=== PATIENT | female | born 1965 | race Caucasian/White ===

== ENCOUNTER → 2017-04-29 | Outpatient (CLI) | payer OTHER ==
--- NOTE | 2017-04-30 08:23 | RAD ---
Right wrist, 3 views, 04/29/2017: History: Wrist pain, old injury There is an old nonunited fracture of the ulnar styloid. No acute fracture or dislocation is identified. There is minimal degenerative change at the first CMC joint. IMPRESSION: No acute bony abnormality is detected.
--- NOTE | 2017-04-30 08:25 | RAD ---
Indication back pain. AP and lateral views of the lumbar spine were obtained as well as a coned view targeted to the lumbosacral junction. A transitional segment is seen. The lower most lumbar vertebral body segment will be referred to as L6. There is slight disc space narrowing at L4-5 with mild anterolisthesis of L4 relative to L5. Vertebral height is well maintained. Some facet degenerative changes are noted in the lower lumbar spine. Acute bony finding is not seen. IMPRESSION: Mild spondylitic changes. No acute finding seen
== END | disposition home or self-care (01) ==
LOC: RAD 16:30
PROVIDERS: ATTEND Nurse Practitioner Family
DX: M47.896 Other spondylosis, lumbar region (principal); W19.XXXD Unspecified fall, subsequent encounter
CPT/HCPCS: 72100; 73110

== ENCOUNTER 2021-04-14 06:49 | Emergency (ER) | payer BC, OTHER ==
[~2021-04-14] VITALS: Ht 165.1 cm; Wt 66.3 kg
--- NOTE | 2021-04-14 07:11 | EKG ---
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
--- NOTE | 2021-04-14 07:16 | PHYS DOC ---
General Adult EDM: Chief Complaint: CHEST PAIN HPI: HPI: 56-year-old female presents with chest pain. She has been having chest pain since last night. She describes it as a tension feeling. It is mild in intensity. She has also been checking her blood pressure the last couple days and its been elevated as high as 180s over 90s. The patient has never had hypertension. She is not on any medications for hypertension. She went to bed last night thinking her pressure and the chest pain might get better. When she woke up this morning she still had discomfort in her central chest and between her shoulder blades. Her blood pressure was still elevated so she decided she should come to the emergency room. Patient has had a lot of emotional stress in her life the last few months. She has lost a couple of family members and some other socially stressful events. She denies shortness of breath, diaphoresis, fever or chills. Review of Systems: Review of Systems: Constitutional: Denies fever or chills Eyes: Denies change in visual acuity HENT: Denies nasal congestion or sore throat Respiratory: Denies cough or shortness of breath Cardiovascular: Chest pain GI: Denies abdominal pain, nausea, vomiting, bloody stools or diarrhea : Denies dysuria Musculoskeletal: Denies back pain or joint pain Integument: Denies rash Neurologic: Denies headache, focal weakness or sensory changes Endocrine: Denies polyuria or polydipsia Lymphatic: Denies swollen glands Psychiatric: Stress, anxiety Allergies: Allergies: Allergies Coded Allergies Type Severity Reaction Last Updated Verified No Known Drug Allergies 04/14/21 No Physical Exam: PE: Constitutional: Well developed, well nourished, no acute distress, non-toxic appearance. [] HENT: Normocephalic, atraumatic, bilateral external ears normal, oropharynx moist, no oral exudates, nose normal. [] Eyes: PERRLA, EOMI, conjunctiva normal, no discharge. [] Neck: Normal range of motion, no tenderness, supple, no stridor. [] Cardiovascular: Heart rate 74, regular rhythm, no murmur [] Lungs & Thorax: Bilateral breath sounds clear to auscultation [] Abdomen: Bowel sounds normal, soft, no tenderness, no masses, no pulsatile masses. [] Skin: Warm, dry, no erythema, no rash. [] Back: No tenderness, no CVA tenderness. [] Extremities: No tenderness, no cyanosis, no clubbing, ROM intact, no edema. [] Neurologic: Alert and oriented X 3, normal motor function, normal sensory function, no focal deficits noted. [] Psychologic: Affect normal, judgement normal, mood anxious. [] EKG: EKG: Sinus rhythm, rate 74, normal axis, no ST elevation or depression. [] Radiology/Procedures: Radiology/Procedures: [] Heart Score: C/O Chest Pain: Yes HEART Score for Chest Pain: HEART Score for Chest Pain Response (Comments) Value History Slighlty/Non-Suspicious 0 ECG Normal 0 Age >45 - < 65 1 Risk Factors 1 or 2 Risk Factors 1 Troponin < Normal Limit 0 Total 2 Risk Factors: Risk Factors: DM, Current or recent (<one month) smoker, HTN, HLP, family history of CAD, obesity. Risk Scores: Score 0 - 3: 2.5% MACE over next 6 weeks - Discharge Home Score 4 - 6: 20.3% MACE over next 6 weeks - Admit for Clinical Observation Score 7 - 10: 72.7% MACE over next 6 weeks - Early Invasive Strategies Course & Med Decision Making: Course & Med Decision Making Pertinent Labs and Imaging studies reviewed. (See chart for details) The patient's EKG is unremarkable. Her labs are unremarkable. Her troponin is negative. Her chest x-ray is negative for acute findings. I give the patient 1 mg of Ativan IV. Her pressure has improved to the 140s or 150s over 80. I discussed the patient's blood pressure with her. She may need to be on blood pressure medicine at this time. It could be heavily influenced by the stress in her life. We talked about sodium consumption. The patient will follow up with her primary care physician to further discuss this. She is stable for discharge at this time. [] Dragon Disclaimer: Dragon Disclaimer: This electronic medical record was generated, in whole or in part, using a voice recognition dictation system. Departure Departure: Impression: Primary Impression: Chest pain Qualified Codes: R07.9 - Chest pain, unspecified Additional Impression: Hypertension Qualified Codes: I10 - Essential (primary) hypertension Disposition: HOME / SELF CARE / HOMELESS Condition: STABLE Referrals: ANTHONY LOGAN MD (PCP) Patient Instructions: Chest Pain (Nonspecific), [id number], Hypertension, E asy-to-Read JUAN BARBOZA DO Apr 14, 2021 07:16
--- NOTE | 2021-04-14 07:34 | RAD ---
EXAM: 120 DATE: 04/14/2021 7:11 AM INDICATION: Reason: CP / Spl. Instructions: / History: COMPARISON: No Prior FINDINGS: The heart is not enlarged. Mediastinal and hilar contours are normal. No focal parenchymal airspace opacity. No pleural effusion or pneumothorax. Widening right AC joint versus distal clavicular resection. IMPRESSION: 1. No acute cardiopulmonary process. 2. Widening right AC joint, suggesting AC separation, versus distal clavicular resection. Electronically signed by: Jd Garcia MD (04/14/2021 7:31 AM) [place]
[2021-04-14] MEDS ORDERED: ASPIRIN CHEWABLE 81 MG TABLET. PO ONE (07:45)
[2021-04-14 07:51] LABS: BASO % 1 % (0-3); EOS # 0.1 x10^3/uL (0.0-0.7); EOS % 3 % (0-3); HEMATOCRIT 44.1 % (36.0-47.0); LYMPH # 1.2 x10^3/uL (1.0-4.8); LYMPH % 26 % (24-48); MEAN CORPUSCULAR HEMOGLOBIN 32 pg (25-35); MEAN CORPUSCULAR HGB CONC 34 g/dL (31-37); MEAN CORPUSCULAR VOLUME 94 fL (79-100); MONO # 0.5 x10^3/uL (0.0-1.1); MONO % 10 % (0-9); NEUT # 2.8 x10^3uL (1.8-7.7); NEUT % 60 % (31-73); PLATELET COUNT 197 x10^3/uL (140-400); RED BLOOD COUNT 4.71 x10^6/uL (3.50-5.40); RED CELL DISTRIBUTION WIDTH 13.6 % (11.5-14.5); WHITE BLOOD COUNT 4.7 x10^3/uL (4.0-11.0)
[2021-04-14 08:13] LABS: POTASSIUM ISTAT 3.9 mmol/L (3.5-5.0); SODIUM ISTAT 142 mmol/L (135-145)
[2021-04-14 08:14] LABS: BUN ISTAT 16 mg/dL (8-26); GLUCOSE ISTAT 102 mg/dL (60-99); HEMATOCRIT ISTAT 42 %; HEMOGLOBIN ISTAT 14.3 gm/dL
[2021-04-14 08:16] LABS: CLARITY,URINE CLEAR; COLOR,URINE YELLOW
[2021-04-14 08:17] LABS: BILIRUBIN,URINE NEG (NEG); GLUCOSE,URINE NEG (NEG); NITRITE,URINE NEG (NEG); UROBILINOGEN,URINE 0.2 mg/dL (0.2 mg/dL)
[2021-04-14 08:18] LABS: BACTERIA,URINE 0 /HPF (0-FEW); RBC,URINE 0 /HPF (0-2); SQUAMOUS EPITHELIAL CELL,UR FEW /LPF; WBC,URINE OCC /HPF (0-4)
[2021-04-14 09:05] VITALS: BP 177/83
[2021-04-14 12:53] LABS: CALCIUM 8.9 mg/dL (8.5-10.1); CREATININE 0.7 mg/dL (0.6-1.0); GFR 86.2
[2021-04-14 12:59] LABS: ALBUMIN 3.6 g/dL (3.4-5.0); ALBUMIN/GLOBULIN RATIO 1.1 (1.0-1.7); TOTAL BILIRUBIN 0.7 mg/dL (0.2-1.0); TOTAL PROTEIN 6.8 g/dL (6.4-8.2)
== END 2021-04-14 09:04 | disposition home or self-care (01) ==
LOC: ER 06:49
DX: I10 Essential (primary) hypertension (principal); R07.89 Other chest pain
CPT/HCPCS: 36415; 71045; 80047; 80053; 81001; 84484; 85025; 87086; 93005; 96374; 99285; J2060; 87077

== ENCOUNTER 2021-05-10 04:58 | Inpatient (IN) | payer BC ==
[~2021-05-10] VITALS: Ht 165.1 cm; Wt 66.7 kg
--- NOTE | 2021-05-10 05:10 | PHYS DOC ---
Past History Past Medical History: Angina, Anxiety, Arthritis, Hypertension, Sinusitis, Other Additional Past Medical Histor: back pain Past Surgical History: Oophorectomy, Other Additional Past Surgical Histo: knee surgery Past Surgical History Shoulder RT. Alcohol Use: None General Adult EDM: Chief Complaint: CHEST PAIN HPI: HPI: ".. I woke up with chest pain.. about 2 am.. and it been in the center of my chest all rest of the night..It just like when I was here the other day.. I been seeing Hilario.. and he put on all these meds.. ".. " I ve never had hypertension until when I was here in March..." Patient is a 56 year old female who presents with above hx and complaints of central chest pain. Pt. is non- radiating, no pleuritic changes. Patient rates her pain 4-5 out of 10. Patient recently had ED visit on 04/22/2021 for chest pain. Pt. has had a lot of emotional stress in the last few months. Loss of family members and social life stressful events. has recently had surgery on his right foot for diabetic vascular issues. Patient currently follows with Dr. Rich. Patient concerned that the lisinopril blood pressure is putting her to sleep. Patient has been taking other meds benzodiazepines which may be the meds causing her to feel sleepy. She takes all of her meds in the morning when she wakes up. Patient denies any recent travel. No specific ill contacts. Pt. has not had COVID vaccination, because flu shot " almost kills her" and the "Moderna " shot killed her mother. Pt. is extremely anxious. Pt.reports BP readings at home this morning have been 180's/90's and they currently in the ED at that level. Review of Systems: Review of Systems: Constitutional: Denies fever or chills Eyes: Denies change in visual acuity HENT: Denies nasal congestion or sore throat Respiratory: Denies cough or shortness of breath Cardiovascular: Complains of chest pain GI: Denies abdominal pain, nausea, vomiting, bloody stools or diarrhea : Denies dysuria Musculoskeletal: Denies back pain or joint pain Integument: Denies rash Neurologic: Denies headache, focal weakness or sensory changes Endocrine: Denies polyuria or polydipsia Lymphatic: Denies swollen glands Psychiatric: Complaints of anxiety Family History: Family History: Cardiac issues starting at age 50 and her family members Current Medications: Current Meds: See nursing for home meds Allergies: Allergies: Allergies Coded Allergies Type Severity Reaction Last Updated Verified Penicillins Allergy Intermediate 05/10/21 Yes Physical Exam: PE: Constitutional: in acute emotional distress, very anxious in appearance. [] HENT: Normocephalic, atraumatic, bilateral external ears normal, oropharynx moist, no oral exudates, nose normal. [] Eyes: PERRLA, EOMI, conjunctiva normal, no discharge. [] Neck: Normal range of motion, no tenderness, supple, no stridor. [] Cardiovascular:Heart rate regular rhythm, no murmur [. Bedside monitor show a sinus rhythm at time bradycardic,] Lungs & Thorax: Bilateral breath sounds equal apex on auscultation [] Abdomen: Bowel sounds normal, soft, no tenderness, no masses, no pulsatile masses. Old surgical scar Skin: Warm, dry, no erythema, no rash. Poor turgor Back: No tenderness, no CVA tenderness. Old surgery scar Extremities: No tenderness, no cyanosis, no clubbing, ROM intact, no edema. Old right shoulder scar. No cording appreciated Neurologic: Alert and oriented X 3, moves all extremities on request, does have distal sensory,, no focal deficits noted. [] Psychologic: Affect extremely anxious, judgement normal, mood normal. [] EKG: EKG: My interpretation EKG shows a sinus rhythm at 63 bpm. Some J-point elevation in V1 ,2, 3 .. but no contralateral changes. 05:03 hrs. Radiology/Procedures: Radiology/Procedures: [][address] [address] IMAGING REPORT Signed PATIENT: PILO MANZANO ACCOUNT: [id number] : 1965 LOCATION: ER AGE: 56 SEX: F EXAM STATUS: REG ER ORD. PHYSICIAN: STACEY LAWS MD REASON: cp PROCEDURE: PORTABLE CHEST 1V INDICATION: Reason: cp / Spl. Instructions: / History: COMPARISON: April 14, 2021 FINDINGS: Single view of chest obtained. No focal airspace consolidation. Cardiac silhouette unremarkable. Repeat demonstration of resorption or resection right distal clavicle with mild elevation of the right clavicle. IMPRESSION: * No focal airspace consolidation or edema. Electronically signed by: Hollis Farias MD (05/10/2021 6:52 AM) [id number] DICTATED AND SIGNED BY: HOLLIS FARIAS MD DATE: 05/10/21 0650 CC: ANTHONY RICH MD; STACEY LAWS MD ~MTH0 0 Heart Score: C/O Chest Pain: Yes HEART Score for Chest Pain: HEART Score for Chest Pain Response (Comments) Value History Slighlty/Non-Suspicious 0 ECG Normal 0 Age >45 - < 65 1 Risk Factors 1 or 2 Risk Factors 1 Troponin < Normal Limit 0 Total 2 Risk Factors: Risk Factors: DM, Current or recent (<one month) smoker, HTN, HLP, family history of CAD, obesity. Risk Scores: Score 0 - 3: 2.5% MACE over next 6 weeks - Discharge Home Score 4 - 6: 20.3% MACE over next 6 weeks - Admit for Clinical Observation Score 7 - 10: 72.7% MACE over next 6 weeks - Early Invasive Strategies Course & Med Decision Making: Course & Med Decision Making Pertinent Labs and Imaging studies reviewed. (See chart for details) Discussed presentation, testing and tx plan with Dr. Minaya- Admit to his ser vice. Cardiology consult. Pt. ED Hold at shift change, because of lack of cardiac leads in main hospital. Awaiting morning discharges. Impression: 1. Chest pain 2. Accelerated hypertension 3. Anxiety 4. Mild hypokalemia 3.3 [] Dragon Disclaimer: Dragon Disclaimer: This electronic medical record was generated, in whole or in part, using a voice recognition dictation system. Departure Departure: Referrals: ANTHONY RICH MD (PCP) Young Disclaimer This chart was dictated in whole or in part using Voice Recognition software in a busy, high-work load, and often noisy Emergency Department environment. It may contain unintended and wholly unrecognized errors or omissions. Dragon Disclaimer This chart was dictated in whole or in part using Voice Recognition software in a busy, high-work load, and often noisy Emergency Department environment. It may contain unintended and wholly unrecognized errors or omissions. Dragon Disclaimer This chart was dictated in whole or in part using Voice Recognition software in a busy, high-work load, and often noisy Emergency Department environment. It may contain unintended and wholly unrecognized errors or omissions. STACEY LAWS MD May 10, 2021 05:10
[2021-05-10 05:30] LABS: BASO % 1 % (0-3); EOS # 0.1 x10^3/uL (0.0-0.7); EOS % 2 % (0-3); HEMATOCRIT 40.5 % (36.0-47.0); HEMOGLOBIN 13.9 g/dL (12.0-15.5); LYMPH # 1.5 x10^3/uL (1.0-4.8); LYMPH % 25 % (24-48); MEAN CORPUSCULAR HEMOGLOBIN 32 pg (25-35); MEAN CORPUSCULAR HGB CONC 34 g/dL (31-37); MEAN CORPUSCULAR VOLUME 94 fL (79-100); MONO # 0.6 x10^3/uL (0.0-1.1); MONO % 10 % (0-9); NEUT # 3.6 x10^3uL (1.8-7.7); NEUT % 62 % (31-73); PLATELET COUNT 196 x10^3/uL (140-400); RED CELL DISTRIBUTION WIDTH 13.6 % (11.5-14.5); WHITE BLOOD COUNT 5.9 x10^3/uL (4.0-11.0)
[2021-05-10] MEDS ORDERED: cloNIDine HCL 0.1 MG TABLET PO ONE (05:30)
[2021-05-10] MEDS ORDERED: IV RINGERS SOLUTION,LACTATED 1,000 ML IV SCH (05:30)
[2021-05-10] MEDS ORDERED: ASPIRIN CHEWABLE 81 MG TABLET. PO ONE (05:30)
[2021-05-10 05:39] LABS: CALCIUM 8.4 mg/dL (8.5-10.1); CREATININE 0.8 mg/dL (0.6-1.0); GFR 73.9; POTASSIUM 3.3 mmol/L (3.5-5.1)
[2021-05-10 05:52] LABS: ALBUMIN 3.3 g/dL (3.4-5.0); DIRECT BILIRUBIN 0.1 mg/dL (0.0-0.2); MAGNESIUM 1.8 mg/dL (1.8-2.4); TOTAL BILIRUBIN 0.2 mg/dL (0.2-1.0); TOTAL PROTEIN 6.4 g/dL (6.4-8.2)
[2021-05-10] MEDS ORDERED: NITROGLYCERIN OINT 1 GM PACKET. TP ONE ×2 (06:00→07:00)
[2021-05-10] MEDS ORDERED: ENOXAPARIN ** NOTE DOSE ** SYRINGE SQ ONE (06:00)
[2021-05-10] MEDS ORDERED: ONDANSETRON PF 4 MG/2 ML VIAL. IVP PRN (06:30)
[2021-05-10] MEDS ORDERED: ACETAMINOPHEN 325 MG TABLET PO PRN (06:30)
[2021-05-10] MEDS ORDERED: MORPHINE SULFATE 2 MG/ML DISP.SYRIN. IVP PRN (06:30)
--- NOTE | 2021-05-10 06:42 | EKG ---
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
--- NOTE | 2021-05-10 06:55 | RAD ---
INDICATION: Reason: cp / Spl. Instructions: / History: COMPARISON: April 14, 2021 FINDINGS: Single view of chest obtained. No focal airspace consolidation. Cardiac silhouette unremarkable. Repeat demonstration of resorption or resection right distal clavicle with mild elevation of the righ t clavicle. IMPRESSION: * No focal airspace consolidation or edema. Electronically signed by: Pete Cavanaugh MD (05/10/2021 6:52 AM) [id number]
[2021-05-10] MEDS ORDERED: LORazepam 1 MG TABLET PO ONE (07:00)
[2021-05-10] MEDS: ASPIRIN CHEWABLE 81 MG TABLET. PO SCH (07:49)
[2021-05-10] MEDS: POTASSIUM CHLORIDE 20 MEQ TABLET.ER. PO SCH (07:50)
[2021-05-10] MEDS ORDERED: IPRATRPIUM/ALBUTEROL 0.5/2.5MG 3 ML NEBU. NEB SCH (08:00)
[2021-05-10 08:30] LABS: BARBITURATES NEG (NEG); BENZODIAZEPINES NEG (NEG); CANNABINOIDS NEG (NEG); COCAINE NEG (NEG); METHADONE NEG (NEG); OPIATES NEG (NEG); PHENCYCLIDINE NEG (NEG)
[2021-05-10 08:38] LABS: AMPHETAMINE/METHAMPHETAMINE NEG (NEG)
[2021-05-10 08:51] LABS: BACTERIA,URINE 0 /HPF (0-FEW); BILIRUBIN,URINE NEG (NEG); CLARITY,URINE CLEAR; COLOR,URINE YELLOW; GLUCOSE,URINE NEG (NEG); HYALINE CASTS, URINE OCC /HPF; NITRITE,URINE NEG (NEG); RBC,URINE RARE /HPF (0-2); SQUAMOUS EPITHELIAL CELL,UR FEW /LPF; UROBILINOGEN,URINE 0.2 mg/dL (0.2 mg/dL); WBC,URINE RARE /HPF (0-4)
[2021-05-10] MEDS: METOPROLOL TART IMMED RELEASE 25 MG TABLET. PO SCH ×2 (09:00→21:06)
[2021-05-10] MEDS ORDERED: MONT10TA80 PO (09:01)
[2021-05-10] MEDS ORDERED: LISI10TA16 PO (09:01)
[2021-05-10] MEDS ORDERED: SERT50TA PO (09:01)
[2021-05-10] MEDS ORDERED: HYDR12.58 PO (09:01)
[2021-05-10] MEDS ORDERED: ALPR0.254 PO (09:01)
--- NOTE | 2021-05-10 11:53 | EKG ---
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
[2021-05-10 13:16] VITALS: BP 172/88
[2021-05-10] MEDS ORDERED: PANTOPRAZOLE 40 MG TABLET. PO ONE (16:45)
[2021-05-10] MEDS ORDERED: ALPRAZolam 0.25 MG TABLET PO PRN (18:00)
[2021-05-10] MEDS ORDERED: amLODIPine BESYLATE 5 MG TABLET PO ONE (18:00)
[2021-05-10 19:18] VITALS: BP 145/75
--- NOTE | 2021-05-10 19:52 | HP ---
ADMIT DATE: 05/10/2021 HISTORY OF PRESENT ILLNESS: The patient is a 56-year-old female patient who presented to the Emergency Room with a complaint of chest pain that woke her up at 2:00 in the morning and it has been in the center of her chest, all night. Apparently, she rated her pain as 6/10 in severity, continued at a lower intensity until she arrived here in the emergency room, did complain of shortness of breath, nausea, but no vomiting. Denied any diaphoresis, denied any radiation. She was extensively investigated in the Emergency Room and she was in sinus rhythm at a heart rate of 63 beats per minute with no ST segment elevation or depression. Her chest x-ray showed no focal consolidation, cardiac silhouette unremarkable. Repeat demonstration of resection of right distal clavicle with mild elevation of the right clavicle. Her lab work showed that her first set of cardiac enzyme was negative and the patient was admitted to do 2 more sets of cardiac enzymes, check her fasting lipid profile and consult the negotiations director. PAST MEDICAL HISTORY: Significant for hypertension diagnosed recently, hyperlipidemia, recurrent UTIs. She is not on any cholesterol-lowering agent. PAST SURGICAL HISTORY: Significant for right shoulder arthroscopic surgery, left knee arthroscopic surgery and right oophorectomy. ALLERGIES: SHE IS ALLERGIC TO PENICILLIN. MEDICATIONS: She is on lisinopril 10 mg once a day, sertraline 50 mg once a day, alprazolam 0.25 mg twice a day, hydrochlorothiazide 25 mg once a day and Singulair 10 mg once a day. FAMILY HISTORY: She has one brother who is younger, has diabetes. Father at age of 92. Mother at age of 85. The exact cause of is not known to her. SOCIAL HISTORY: She is , has no children. She never smoked, does not drink alcohol. She works for the [employer]. REVIEW OF SYSTEMS: As per history of present illness. PHYSICAL EXAMINATION: GENERAL: On arrival, the patient looked well and was clearly in no apparent respiratory distress. No pallor, jaundice, cyanosis or thyromegaly. No jugular venous distention. No limb edema. VITAL SIGNS: Her heart rate was 66, blood pressure is 185/95, temperature was 97.8, respiratory rate was 14 and oxygen saturation was 98%. HEAD, EYES, EARS, NOSE, AND THROAT: Normocephalic, atraumatic. NECK: Supple. HEART: Showed normal first and second heart sounds, no gallop, rub or murmur. CHEST: Clear to auscultation, no crepitation or rhonchi. ABDOMEN: Distended, soft, nontender. NEUROLOGIC: She was grossly intact. LABORATORY DATA: Her lab work showed a white cell count of 5.9, hemoglobin 13.9, hematocrit 40, MCV 94 and platelet count of 196,000 with normal manual differential. Her serum sodium was 145, potassium 3.3, chloride 107, bicarbonate 30, anion gap of 8, BUN 19, creatinine 0.8. Estimated GFR was 74. Her chemistry showed a serum sodium of 145, potassium 3.3, chloride 107, bicarbonate 30, anion gap of 8, BUN 19, creatinine 0.8. Estimated GFR was 73 mL per minute. Her glucose 110, calcium was 8.7, magnesium was 1.8. Her total bilirubin, AST, ALT, alkaline phosphatase were all normal. Her troponin was less than 0.017, total protein 6.4, albumin 3.3 and TSH was normal. ASSESSMENT AND PLAN: The patient will be admitted to do 2 more sets of cardiac enzymes, check her fasting lipid profile. We will consult the negotiations director. Her heart rate is somewhat low, so beta blockers would not be appropriate and she has not responded well to the lisinopril, so calcium-channel shelli may be a better idea. ETTA DR: Jamie TID: [id number]
[2021-05-10 21:21] VITALS: BP 145/75
[2021-05-10 23:43] VITALS: BP 167/85
[2021-05-11 06:31] VITALS: BP 174/88
[2021-05-11 07:08] LABS: CALCIUM 8.6 mg/dL (8.5-10.1); CREATININE 0.5 mg/dL (0.6-1.0); GFR 127.2; POTASSIUM 4.2 mmol/L (3.5-5.1)
[2021-05-11] MEDS ORDERED: PANTOPRAZOLE 40 MG TABLET. PO SCH (07:30)
[2021-05-11] MEDS: ASPIRIN CHEWABLE 81 MG TABLET. PO SCH (08:22)
[2021-05-11] MEDS: METOPROLOL TART IMMED RELEASE 25 MG TABLET. PO SCH (08:22)
[2021-05-11] MEDS: POTASSIUM CHLORIDE 20 MEQ TABLET.ER. PO SCH (08:23)
[2021-05-11] MEDS ORDERED: SERTRALINE 50 MG TABLET. PO SCH (09:00)
[2021-05-11] MEDS ORDERED: amLODIPine BESYLATE 10 MG TABLET PO SCH (09:00)
[2021-05-11] MEDS ORDERED: MONTELUKAST 10 MG TABLET. PO SCH (09:00)
[2021-05-11] MEDS ORDERED: hydroCHLOROthiazide 25 MG TABLET. PO SCH (09:00)
[2021-05-11 10:15] VITALS: BP 134/79
[2021-05-11] MEDS ORDERED: AMLO-187 PO (14:52)
[2021-05-11 14:57] VITALS: BP 175/91
--- NOTE | 2021-05-11 21:08 | DS ---
DATE OF DISCHARGE: 05/11/2021 HOSPITAL COURSE: The patient is a 56-year-old female patient who presented to the Emergency Room with chest pain that awoke her from sleep at 2:00 in the morning, has been in the center of her chest. Apparently, she rated her pain 6/10 in severity, continued at a lower intensity until she arrived here in the Emergency Room, did complain of shortness of breath, nausea, but no vomiting. Denied any diaphoresis, denied any radiation. She was extensively investigated in the Emergency Room and she was in sinus rhythm with a heart rate of 63 beats per minute with no ST segment elevation or depression. Chest x-ray was unremarkable. Her lab work showed that her first set of cardiac enzyme was negative. She was admitted and has two more sets of cardiac enzymes that ruled out acute myocardial infarction. Her thyroid function test was normal with a TSH of 2.036. Her fasting lipid profile showed serum triglycerides were 73. Total cholesterol 187, LDL was 122, VLDL was 14, HDL was 50 and the ratio was 3. DISCHARGE MEDICATIONS: The patient was discharged home to continue on amlodipine besylate 10 mg once a day, alprazolam 0.5 mg twice a day, hydrochlorothiazide 25 mg once a day, montelukast sodium 10 mg daily at bedtime and sertraline or Zoloft 50 mg daily. FINAL DISCHARGE DIAGNOSES: Chest pain, acute myocardial infarction ruled out, labile hypertension and severe anxiety. RADHA DR: Jamie TID: [id number]
== END 2021-05-11 18:11 | disposition home or self-care (01) | DRG 313 ==
LOC: ER 04:58 → 1 SOUTH 06:34 → ER 12:59
PROVIDERS: ADMIT Internal Medicine; ATTEND Internal Medicine
DX: R07.89 Other chest pain (principal); F41.9 Anxiety disorder, unspecified; I10 Essential (primary) hypertension; E11.9 Type 2 diabetes mellitus without complications; E78.5 Hyperlipidemia, unspecified; E87.6 Hypokalemia; M19.90 Unspecified osteoarthritis, unspecified site; Z83.3 Family history of diabetes mellitus; Z87.440 Personal history of urinary (tract) infections; Z90.721 Acquired absence of ovaries, unilateral
CPT/HCPCS: 36415; 71045; 80048; 80061; 80076; 80307; 81001; 82550; 83690; 83735; 83880; 84443; 84484; 85025; 85379; 85610; 85730; 93005; 96360; 96368; J1650; J7120; 99285-25